=== PATIENT | female | born 1980 | race Caucasian/White ===

== ENCOUNTER → 2016-09-23 | Outpatient (CLI) | payer OTHER ==
[2015-06-09 11:00] VITALS: BP 146/96
[~2016-09-23] MED LIST: AMLO5TAB2 PO; CYCL10TA2 PO; DOCU-109 PO; HYDR-2679 PO; HYDR-2758 PO; HYDR12.58 PO; IBUP-1060 PO; LEVO75TA5 PO; LOSA50TA6 PO; MEDR150D3 IM; MEDR150V IM; MULT-208 PO; NIFE30TA2 PO; ORPH100T PO; SERT100T PO; SPIR25TA PO; TAPE75TA3 PO; TRAM50TA PO
--- NOTE | 2016-09-23 15:13 | KCIC ---
MR of the right knee HISTORY: Right knee pain after an injury. History of anterior and posterior cruciate ligament repair in 2012. Injury 2 weeks ago. TECHNIQUE: Routine multiplanar sequences are obtained. COMPARISON: None available FINDINGS: Mild signal identified within the posterior horn of the medial meniscus with mild undersurface violation compatible with a degenerative tear. No evidence of a lateral meniscal tear. The anterior cruciate ligament is thinned and poorly defined. This may be the nature of repair, but recurrent chronic tear is not excludable. Posterior cruciate ligament is thickened poorly defined, again could be due to scarring from repair or recurrent tear. Medial collateral ligament demonstrates proximal scarring without acute tear. Iliotibial band unremarkable. Fibular collateral ligament, biceps femoris tendon and popliteus tendon are intact. Extensor mechanism is intact. Small joint effusion. No evidence of an osteochondral loose body. Chondromalacia at the peripheral aspect of the medial joint compartment. Mild lateral compartment chondromalacia. Mild patellofemoral joint chondromalacia. Extensive marrow abnormality involving the distal femur, from the visualized diaphysis to the subchondral bone, and involving the tibial metaphysis through the subchondral bone. Findings are compatible with extensive intramedullary osteonecrosis. No evidence of subchondral bone surface collapse. No evidence of an acute fracture. There is localized edema/fluid at the posterior lateral knee, and along the posterior popliteus. IMPRESSION: 1. 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 2. Medial meniscal tear. 3. Poor definition of the anterior and posterior cruciate ligament. Findings may indicate scarring or the nature of previous repair, but recurrent chronic tearing of the ACL and/or PCL is not excludable. 4. Localized edema/fluid along the posterolateral knee, nonspecific. However this finding can be associated with small ligament injury at the posterolateral corner if that is of clinical concern. Electronically signed by: Carter Ramírez MD (09/23/2016 3:09 PM)
== END | disposition home or self-care (01) ==
LOC: KCIC MRI 13:53
PROVIDERS: ATTEND Nurse Practitioner Gerontology
DX: S89.91XD Unspecified injury of right lower leg, subsequent encounter (principal); M87.9 Osteonecrosis, unspecified; R60.0 Localized edema; X58.XXXD Exposure to other specified factors, subsequent encounter
CPT/HCPCS: 73721

== ENCOUNTER 2016-11-11 08:49 | Day surgery (SDC) | payer OTHER ==
[~2016-11-11] VITALS: Ht 175.3 cm; Wt 77.1 kg
[~2016-11-11 08:49] MED LIST changes: +BUPIVACAINE MPF 0.5% 30 ML VIAL. ONE; +CARV3.122 PO; +EPINEPHrine VIAL 30 MG/30 ML VIAL ONE; +HYDROmorphone 2 MG/ML VIAL IV PRN; +IBUP-1007 PO; +IV RINGERS,LACTATED 1000ML 1,000 ML IV SCH; +LEVO100T5 PO; +LIDOCAINE 1% 1 ML SYRINGE. ID PRN; +LIDOCAINE 1% 20 ML VIAL. ONE; +MORPHINE SULFATE 2 MG/ML DISP.SYRIN. IV PRN; +MULT1TAB52 PO; +ONDA4TAB7 PO; +ONDANSETRON PF 4 MG/2 ML VIAL. IV PRN; +OXYM20TA17 PO; +PROCHLORPERAZINE 10 MG/2 ML VIAL. IV PRN; +fentaNYL PF VIAL 100 MCG/2 ML VIAL IV PRN
[2016-11-11] MEDS ORDERED: fentaNYL PF VIAL 100 MCG/2 ML VIAL ONE ×3 (09:01→13:15)
[2016-11-11] MEDS ORDERED: MIDAZOLAM HCL/PF 2 MG/2 ML VIAL. ONE (09:01)
[2016-11-11] MEDS ORDERED: ONDANSETRON PF 4 MG/2 ML VIAL. ONE (09:02)
[2016-11-11] MEDS ORDERED: DEXAMETHASONE SOD PHOS 20 MG/5 ML VIAL. ONE (09:02)
[2016-11-11] MEDS ORDERED: PROPOFOL 20 ML IV ONE (09:02)
[2016-11-11] MEDS ORDERED: LIDOCAINE 2% PF Vial for OR 5 ML VIAL. ONE (09:02)
[2016-11-11] MEDS ORDERED: FAMOTIDINE 20 MG/2 ML VIAL ONE (09:02)
[2016-11-11] MEDS ORDERED: IV RINGERS,LACTATED 1000ML 1,000 ML IV SCH (09:30)
[2016-11-11] MEDS ORDERED: MELO15TA6 PO (09:34)
--- NOTE | 2016-11-11 09:59 | DISCH ---
DISCHARGE INSTRUCTIONS Condition on Discharge Condition on Discharge: Stable Activity After Discharge Activity Instructions for Disc: Other, see below Other activity instructions: knee brace to remain in place, except for showering Bathing Instructions: Shower-keep dressing dry Weight Bearing Status after Di: Full weight bearing Diet after Discharge Diet after Discharge: Regular Wound Incision Care Wound/Incision Care: Ice to area for comfort, Keep wound/cast CDI, Change dressing, Do not change dressing Contacting the DR. after DC Call your doctor for: Concerns you may have Follow-Up Follow up with: Rosmery in 2wks ANGIE VALENTINE II, MD Nov 11, 2016 09:59
[2016-11-11 10:07] LABS: NEG OBC UR NEG; POS OBC UR POS
--- NOTE | 2016-11-11 10:41 | PDOC4 ---
Operative Note Operative Note Date of surgery: 11/11/2016 Surgeon: Thai Valentine MD Sewing Machine Tester: Karen Maldonado Anesthesia Gen. plus local Preoperative diagnosis: Right knee ACL and PCL tears Postoperative diagnosis: Complete ACL tear and partial PCL tear Findings: She had grade 2 changes at her patella as well as medial and lateral compartments. No loose bodies. Blood loss: 10 mL Components inserted: Shaver and nephew Endobutton with Biomet tunnel lock Tourniquet time: None used Reason for procedure: Patient is a very pleasant 36-year-old female with persistent knee instability. She suffered an injury quite some time ago and had tried a brace as well as physical therapy which did not alleviate her symptoms successfully. Because of instability with activities of daily living, her and I had a discussion of the risks, benefits, and alternatives to the above procedure and she elected to proceed. Description of procedure: Patient was greeted in the preoperative area where the correct extremity was marked and verified. She was then taken back to the operative suite and her antibiotics were started and row. Once in the OR she was transferred gently supine to the OR table and underwent successful induction of a general anesthetic. She was secured to the bed. All pressure points were padded. A padded bolster was placed at her right hip. I conducted my examination under anesthesia which demonstrated a positive Delfino without endpoint, positive posterior drawer with an endpoint, negative dial at 30 and 90, and the knee that was stable to varus and valgus at 0 and 30. We then taped in place a tourniquet to her right thigh. After this we proceeded to prep and drape right lower extremity in our usual sterile fashion and conducted our standard preoperative timeout. At this point, my reference library assistant was at the back table preparing #2 ultra braid suture in a whipstitch fashion and the ends of the grafts. I then palpated and marked surface anatomy for my planned incisions and portals. I then used a scalpel to incise skin and introduced the blunt arthroscopic trocar through the anterolateral portal into the suprapatellar pouch. After this, I conducted my diagnostic arthroscopy with the above-noted findings. Upon entering the medial compartment, I used a spinal needle to localize an anteromedial portal. I then incised skin in accordance with this and dilated the hole with the trocar. I then inserted my probe and continued on with my diagnostic arthroscopy. Her leg was placed in a [id number] position to inspect the lateral compartment. I then began debriding the anterior cruciate ligament using a combination of arthroscopic biter and shaver. I had inspected the PCL and felt that it was mostly intact under arthroscopic inspection. Overall I felt she had a grade 2 PCL injury. Therefore, I elected to not reconstruct the PCL. After adequately debriding the notch and tibial footprint, I felt that I could reconstruct her ACL and avoid the prior tunnels. Therefore I used my tip guide and drilled my Beath pin to her tibial footprint, I then used the camera and inserted it into the tunnel after reaming, I only encountered a small amount of her prior tunnel proximally around her tibial surface. I then reinserted the camera into the anterolateral portal and using a #6 [id number] guide and hyperflexion I advanced my Beath pin and then withdrew it. I then inspected this position from the anteromedial portal and was happy with. I then reamed inserted the camera through the anterolateral portal in the [id number] guide and then advanced my Beath pin bicortically. After this I reamed and then inspected my tunnel after removing the bony debris. The tunnel was intact circumferentially and I could visualize the cortex laterally. I then reintroduced my Beath pin through the prior hole and out through the skin and used this to shuttle a #2 ultra braid suture through for passing suture. I then used a loop grasper through the tibial tunnel to retrieve the other end of the passing stitch and then shuttled my ACL graft in place with a good toggle of the Endobutton that disappeared with maximal backward traction on the graft through the tibial tunnel portion. After this I cycled the knee repeatedly with traction on the ACL graft and then impacted my tunnel lock device into position. I then reinserted the camera and took my final pictures and was happy with the graft position and orientation. There is no impingement. I then inserted the camera and shaver into the suprapatellar pouch and performed repeat aspiration maneuvers to ensure I removed all loose debris. I then removed all excess arthroscopic fluid and the arthroscopic instrumentation and closed her portals with simple interrupted 2-0 nylon. The deep layers over the tibial report were closed with inverted interrupted 20 followed by running 4-0 Monocryl subcuticular fashion. Prior to comp shooting wound closure all culture report is correct 2. No competitions. She tolerated surgery well. At the conclusion surgery she was awakened from anesthesia and transferred gently supine to the recovery room cart and taken to the PACU in stable and extubated condition. Postoperative plan is for her to weight-bear as tolerated and begin her rehabilitation. We will see her back in 2 weeks, sooner should a problem arise THAI VALENTINE II, MD Nov 11, 2016 10:41
[2016-11-11] MEDS ORDERED: KETOROLAC 60 MG/2 ML INJ FOR OR. ONE (12:08)
[2016-11-11] MEDS ORDERED: NEOSTIGMINE METHYLSULFATE 5 MG/5 ML SYRINGE. ONE (12:08)
[2016-11-11] MEDS ORDERED: GLYCOPYRROLATE 1 MG/5 ML VIAL. ONE (12:08)
[2016-11-11] MEDS ORDERED: SEVOFLURANE 61 TO 120 MINUTES. IH ONE (12:25)
[2016-11-11] MEDS ORDERED: HYDROmorphone 2 MG/ML VIAL ONE (12:40)
[2016-11-11] MEDS: fentaNYL PF VIAL 100 MCG/2 ML VIAL IV PRN ×4 (12:41→13:50)
[2016-11-11] MEDS ORDERED: OXYC-327 PO (12:44)
[2016-11-11] MEDS: HYDROmorphone 2 MG/ML VIAL IV PRN ×4 (12:49→13:35)
[2016-11-11] MEDS ORDERED: oxyCODONE/APAP 7.5/325 1 TAB TABLET PO PRN (13:30)
[2016-11-11] MEDS ORDERED: MORPHINE SULFATE 2 MG/ML DISP.SYRIN. ONE (13:34)
[2016-11-11] MEDS: MORPHINE SULFATE 2 MG/ML DISP.SYRIN. IV PRN ×2 (13:44→14:00)
[2016-11-11] MEDS ORDERED: MORPHINE SULFATE 2 MG/ML DISP.SYRIN. IV PRN (14:00)
[2016-11-11 14:26] VITALS: BP 149/89
== END 2016-11-11 15:08 | disposition home or self-care (01) ==
LOC: SURG 08:49
PROVIDERS: ATTEND Orthopaedic Surgery Sports Medicine
DX: S83.511A Sprain of anterior cruciate ligament of right knee, initial encounter (principal); S83.521A Sprain of posterior cruciate ligament of right knee, initial encounter; X58.XXXA Exposure to other specified factors, initial encounter; Y93.89 Activity, other specified; Y92.89 Other specified places as the place of occurrence of the external cause; Y99.8 Other external cause status; I10 Essential (primary) hypertension; E03.9 Hypothyroidism, unspecified; F17.200 Nicotine dependence, unspecified, uncomplicated; Z86.39 Personal history of other endocrine, nutritional and metabolic disease; Z72.0 Tobacco use
CPT/HCPCS: 29888; 81025; C1713; C1763; C1782; J0171; J0690; J0780; J1100; J1170; J1885; J2001; J2250; J2270; J2405; J2704; J2710; J3010; J3490; S0028

== ENCOUNTER 2017-10-08 06:19 | Day surgery (SDC) | payer OTHER, BC ==
[~2017-10-08 06:19] MED LIST changes: -AMLO5TAB2 PO; -BUPIVACAINE MPF 0.5% 30 ML VIAL. ONE; -CARV3.122 PO; -CYCL10TA2 PO; -DOCU-109 PO; +EPINEPHrine VIAL 30 MG/30 ML VIAL; -EPINEPHrine VIAL 30 MG/30 ML VIAL ONE; -HYDR-2679 PO; -HYDR-2758 PO; -HYDR12.58 PO; -HYDROmorphone 2 MG/ML VIAL IV PRN; -IBUP-1007 PO; -IBUP-1060 PO; -IV RINGERS,LACTATED 1000ML 1,000 ML IV SCH; -LEVO100T5 PO; -LEVO75TA5 PO; -LIDOCAINE 1% 1 ML SYRINGE. ID PRN; -LIDOCAINE 1% 20 ML VIAL. ONE; +LIDOCAINE 1% PF 30 ML VIAL.; -LOSA50TA6 PO; -MEDR150D3 IM; -MEDR150V IM; -MORPHINE SULFATE 2 MG/ML DISP.SYRIN. IV PRN; -MULT-208 PO; -MULT1TAB52 PO; -NIFE30TA2 PO; -ONDA4TAB7 PO; -ONDANSETRON PF 4 MG/2 ML VIAL. IV PRN; -ORPH100T PO; -OXYM20TA17 PO; -PROCHLORPERAZINE 10 MG/2 ML VIAL. IV PRN; -SERT100T PO; -SPIR25TA PO; -TAPE75TA3 PO; -TRAM50TA PO; -fentaNYL PF VIAL 100 MCG/2 ML VIAL IV PRN
[2017-10-08] MEDS ORDERED: PROPOFOL 20 ML IV (06:58)
[2017-10-08] MEDS ORDERED: LIDOCAINE 2% PF Vial for OR 5 ML VIAL. (06:58)
[2017-10-08] MEDS ORDERED: fentaNYL PF VIAL 250 MCG/5 ML VIAL (06:59)
[2017-10-08] MEDS ORDERED: MIDAZOLAM HCL/PF 2 MG/2 ML VIAL. (06:59)
[2017-10-08] MEDS ORDERED: MORPHINE SULFATE 2 MG/ML DISP.SYRIN. IV (07:00)
[2017-10-08] MEDS ORDERED: fentaNYL PF VIAL 100 MCG/2 ML VIAL IV (07:00)
[2017-10-08] MEDS ORDERED: ONDANSETRON PF 4 MG/2 ML VIAL. IV (07:00)
[2017-10-08] MEDS ORDERED: LIDOCAINE 1% PF 2 ML VIAL. ID (07:00)
[2017-10-08] MEDS ORDERED: PROCHLORPERAZINE 10 MG/2 ML VIAL. IV (07:00)
[2017-10-08] MEDS: IV RINGERS,LACTATED 1000ML 1,000 ML IV (07:01)
[2017-10-08 07:24] LABS: NEG OBC UR NEG; POS OBC UR POS; U PREG PATIENT NEGATIVE (NEG)
[2017-10-08] MEDS ORDERED: ONDANSETRON PF 4 MG/2 ML VIAL. (07:36)
[2017-10-08] MEDS ORDERED: DEXAMETHASONE SOD PHOS 20 MG/5 ML VIAL. (07:36)
[2017-10-08] MEDS: LIDOCAINE 1%/EPI 1:100,000 20 ML VIAL. INJ (07:38)
[2017-10-08] MEDS: BUPIVACAINE MPF 0.5% 30 ML VIAL. (07:38)
[2017-10-08] MEDS ORDERED: SEVOFLURANE 31 TO 60 MINUTES. IH (08:06)
[2017-10-08] MEDS: fentaNYL PF VIAL 100 MCG/2 ML VIAL IV ×4 (08:40→09:19)
[2017-10-08] MEDS: oxyCODONE/APAP 5/325 1 TAB TABLET PO (09:12)
== END 2017-10-08 10:43 | disposition home or self-care (01) ==
LOC: SURG 06:19
DX: T84.89XA Other specified complication of internal orthopedic prosthetic devices, implants and grafts, initial encounter (principal); I10 Essential (primary) hypertension; E03.9 Hypothyroidism, unspecified; F17.200 Nicotine dependence, unspecified, uncomplicated; Y83.8 Other surgical procedures as the cause of abnormal reaction of the patient, or of later complication, without mention of misadventure at the time of the procedure; Z98.890 Other specified postprocedural states
CPT/HCPCS: 20680; 81025; A7015; J0171; J0690; J1100; J2001; J2250; J2405; J2704; J3010; J3490

== ENCOUNTER → 2018-06-26 | Outpatient (CLI) | payer OTHER, BC ==
[2017-10-08 09:13] VITALS: BP 141/89
[~2018-06-26] MED LIST changes: +AMLO5TAB10 PO; +BUPR1PAT8 TP; +CARV3.1210 PO; +CARV6.2511 PO; +CYCL10TA2 PO; +DOCU-109 PO; -EPINEPHrine VIAL 30 MG/30 ML VIAL; +GABA600T7 PO; +HYDR-2679 PO; +HYDR-2761 PO; +HYDR12.58 PO; +IBUP-1007 PO; +IBUP-1060 PO; +LEVO100T5 PO; +LEVO75TA5 PO; -LIDOCAINE 1% PF 30 ML VIAL.; +LOSA-73 PO; +MEDR150D3 IM; +MEDR150V IM; +MELO15TA6 PO; +MULT-208 PO; +MULT1TAB52 PO; +NIFE30TA2 PO; +ONDA4TAB7 PO; +ORPH100T PO; +OXYC1TAB15 PO; +OXYC1TAB19 PO; +OXYM10TA3 PO; +OXYM20TA17 PO; +POTA20TA82 PO; +SERT100T PO; +SPIR25TA PO; +TAPE75TA3 PO; +TRAM50TA PO
--- NOTE | 2018-06-26 17:39 | KCIC ---
MRI of the lumbar spine without contrast 06/26/2018 CLINICAL HISTORY: Chronic low back pain since 2013. History of previous lumbar spine surgery. TECHNIQUE: Unenhanced T1-weighted and T2-weighted sagittal and axial and inversion recovery sagittal images of the lumbar spine were obtained. FINDINGS: Comparison is made to a CT scan of the lumbar spine dated 06/07/2018. The patient is again noted to have transitional vertebral anatomy. For the purposes of this dictation the transitional vertebral segment will be referred to by the letter T. It is sacralized. Minimal S-shaped curvature of the thoracolumbar spine is seen. Degenerative signal changes and loss of height are seen involving the L5-T disc. Degenerative signal changes are seen within the marrow surrounding this disc. The conus medullaris is normal morphology, position, and signal characteristics. The L1-2, L2-3 and L3-4 disc spaces are within normal limits. At the L4-5 disc space there is a minimal generalized disc bulge. Degenerative changes are seen involving the facet joints bilaterally. There is mild ligament flavum hypertrophy bilaterally. These findings when combined do not result in significant central spinal canal or neural foraminal stenosis. At the L5-T disc space the patient is post left hemilaminotomy. There is a mild to moderate generalized disc bulge. Degenerative changes are seen involving the facet joints bilaterally. These findings do not result in significant central spinal canal stenosis. Mild left neural foraminal stenosis is seen. The right neural foramen is patent. IMPRESSION: 1. Post left hemilaminotomy at L5-T. 2. The changes of degenerative disc disease are seen involving the lower lumbar spine. These findings do not result in significant central spinal canal stenosis at any level. Mild left neural foraminal stenosis is seen at L5-T. Electronically signed by: Deric Martinez MD (06/26/2018 5:36 PM) [facility]-[id number]
== END | disposition home or self-care (01) ==
LOC: KCIC MRI 13:51
PROVIDERS: ATTEND Physician Assistant Medical
DX: M51.36 Other intervertebral disc degeneration, lumbar region (principal); M48.05 Spinal stenosis, thoracolumbar region; M51.25 Other intervertebral disc displacement, thoracolumbar region; M47.815 Spondylosis without myelopathy or radiculopathy, thoracolumbar region; M43.8X5 Other specified deforming dorsopathies, thoracolumbar region
CPT/HCPCS: 72148

== ENCOUNTER → 2018-09-01 | Outpatient (CLI) | payer OTHER, BC ==
[2017-10-08 09:13] VITALS: BP 141/89
[~2018-09-01] MED LIST changes: +IOHEXOL 180 MG/ML 10 ML VIAL. ONE; +methylPREDNISolone ACETATE 40 MG/ML VIAL. ONE; +methylPREDNISolone ACETATE 80 MG/ML VIAL. ONE
--- NOTE | 2018-09-01 22:55 | PAIN ---
DATE OF SERVICE: 09/01/2018 INITIAL CONSULTATION FOR PAIN CLINIC CHIEF COMPLAINT: Low back and left lower extremity pain. HISTORY OF PRESENT ILLNESS: This is a 38-year-old female who presents with history of pain in the low back, left lower extremity, posterior gluteus, posterior thigh, posterior calf and lateral thigh and calf as well on the left side. The patient reports this is worse after a knee reconstruction she had, which was in 2015. The pain has been there since about 2012. The patient did have lumbar laminectomy in 2014, which helped the pain initially, but the pain is returning now in the low back and left leg. The patient reports it is worse with walking, standing, changing positions, better with sitting or lying down, but awakens from sleep about 3-4 times at night over the past several months. The patient reports it does not affect her bowel or bladder control, but does affect her ability to walk. She does not use any assistive device. She has significant fatigability of the left leg with ambulation. The patient reports pain is constant, stabbing, shooting, tingling with numbness and radiation in the left lower extremity. The patient rates her disability from 0-10, 10 being the worst as 7 with family and home responsibilities, recreation, social activity, occupation and sexual behavior, 3 with self-care and 5 with life support activities. The patient did have MRI scan dated 06/26/2018 showing post left hemilaminectomy L5-S1 with change in degenerative disk disease involving the lower lumbar spine, most significantly at L5-S1 with some mild left neural foraminal stenosis, no stenosis seen resulting in significant stenotic areas in the L4-L5 level. The patient reports no loss of motor function in the lower extremities, but significant fatigability with ambulation in the left leg with walking or changing positions. PAST MEDICAL HISTORY: Significant for only previous colon including throat surgery in 1983 and 1987, bone ____ over the left knee removed, tonsillectomy in 2000, in 2011, right knee reconstruction in 2012, lumbar surgery in 2014 and right knee surgery in 2016 x 3. CURRENT MEDICATIONS: Include Depo-Provera, tramadol, levothyroxine, potassium, Butrans and gabapentin. ALLERGIES: The patient has no known drug allergies. FAMILY HISTORY: Significant for thyroid disease and lupus. SOCIAL HISTORY: The patient drinks alcohol about 3-5 alcoholic beverages once a month; smokes occasionally, has been for 20 years, much less than a pack a day. He is , lives with her spouse, has one child, living at home. 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 REVIEW OF SYSTEMS: The patient's review of systems is positive for those items mentioned in history of present illness. All systems reviewed and otherwise negative. It is complete, full and well documented on the patient's chart. PHYSICAL EXAMINATION: VITAL SIGNS: The patient's blood pressure 113/78, pulse 78, respirations 18, temperature 98.1 degrees Fahrenheit, height is 5 feet 9 inches, weighs 179 pounds. GENERAL: The patient is awake, alert, oriented, appropriate, very pleasant demeanor. HEENT: Shows normocephalic, atraumatic. Extraocular movements are intact and symmetrical. Oral cavity: Mucous membranes moist and pink. Dentition is intact. NECK: Shows anterior throat supple without palpable lymphadenopathy noted. Swallow reflex symmetrical. CHEST: Shows normal with inspection. Breath sounds clear to auscultation bilaterally. HEART: Shows S1, S2 clear. No murmurs auscultated. ABDOMEN: Soft, nontender, nondistended. No palpable organomegaly is noted. No rebound or guarding demonstrated. BACK: Shows spine grossly in the midline. Normal-appearing thoracic kyphosis and lumbar lordotic curvature. Well-healed surgical scar is noted. Lumbar paraspinous muscle shows symmetrical on inspection; on palpation shows some mild tenderness to moderate tenderness in the low lumbar distribution on the left side greater than the right, without atrophy, hypertrophy without trigger points. No radiation of pain. The patient has good rotational motion of lumbar spine, both laterally as well as extension and flexion without significant difficulty. EXTREMITIES: Lower extremities show deep tendon reflexes at 2+ in the patellar, 1+ tendo-calcaneus tendons. Motor exam is strong with 5/5 dorsiflexion, extension, quadriceps and hamstring flexion. She does have a mild straight leg raise positive on the left at about 45 degrees, decreased with knee flexion, right side is negative. Gaenslen's and Compa's maneuvers are negative bilaterally. Lower extremities are warm and dry to touch, equal in color and appearance. No peripheral edema is noted. Peripheral pulses are 1+ posterior tibial and dorsalis pedis pulses. The patient's skin shows warm and dry, good turgor. No edema. No sores, rashes or bruising throughout. The patient is able to stand, stand on her toes without significant difficulty or loss of balance, walks with a normal appearing gait for short distance in the office without any assistive devices such as canes or walkers to ambulate. IMPRESSION: This is a 38-year-old female with: 1. Long history of low back and left lower extremity pain, worse since knee construction in 2016. 2. MRI scan of lumbar spine as noted. 3. Previous lumbar laminectomy. PLAN: Options were discussed with the patient including conservative medical management, physical therapy, interventional techniques and she would like to pursue interventional techniques. We discussed lumbar epidural steroid injection using description as well as anatomical models to describe the procedure. Risks were then discussed including, but not limited to bleeding, infection, possibility of epidural hematoma, subsequent neurological compromise, dural puncture, headaches, spinal cord and/or nerve damage, side effects of steroid medication and poor results regarding pain control. The patient understands and wished to proceed. The patient will return to clinic in approximately 2 weeks for followup, was counseled as to return appointment, activity level and side effects to be aware of. DIAGNOSES: Lumbar radiculopathy with lumbar degenerative disk disease, post-lumbar laminectomy syndrome. PROCEDURE: Lumbar epidural steroid injection, translaminar approach at the L5-S1 level using C-arm fluoroscopic guidance under sterile prep and drape using local anesthetic. MEDICATION INJECTED: A total of 120 mg Depo-Medrol plus 10 mL of preservative-free normal saline, 2 mL of contrast. CONDITION AT DISCHARGE: Stable. The patient tolerated the procedure well, had no complications. SUDHIR AGARWAL MD DR: SE/loy JOB#: [id number] / [id number]
== END | disposition home or self-care (01) ==
LOC: PNCL 09:58
PROVIDERS: ATTEND Anesthesiology
DX: M51.16 Intervertebral disc disorders with radiculopathy, lumbar region (principal); M96.1 Postlaminectomy syndrome, not elsewhere classified; Z98.890 Other specified postprocedural states; Z79.899 Other long term (current) drug therapy; Z72.89 Other problems related to lifestyle; F17.210 Nicotine dependence, cigarettes, uncomplicated
CPT/HCPCS: 62323; J1030; J1040; Q9965

== ENCOUNTER → 2019-11-11 | Outpatient (CLI) | payer OTHER ==
[2017-10-08 09:13] VITALS: BP 141/89
[~2019-11-11] MED LIST changes: -IOHEXOL 180 MG/ML 10 ML VIAL. ONE; +MULT-445 PO; -MULT1TAB52 PO; +POTA20TA4 PO; -POTA20TA82 PO; -methylPREDNISolone ACETATE 40 MG/ML VIAL. ONE; -methylPREDNISolone ACETATE 80 MG/ML VIAL. ONE
--- NOTE | 2019-11-11 15:37 | KCIC ---
Examination: MRI of the right knee without contrast HISTORY: History of right knee pain COMPARISON: 09/23/2016 TECHNIQUE: Multiplanar, multisequence MR imaging of the right knee was performed without contrast. FINDINGS: Multiple serpiginous lesions identified in the intramedullary portion of the distal femur and the tibia likely osteonecrosis similar to prior exam. The anterior cruciate ligament is thinned and poorly defined. The anterior and posterior cruciate ligament not well defined similar to prior exam probably reconstructed appearance.. Small knee joint effusion. There is oblique tear of the posterior horn of the medial meniscus similar to prior exam extending to the inferior articular surface. The lateral meniscus appears intact. The medial collateral ligament is intact. Lateral collateral ligamentous complex including the fibular collateral ligament, biceps femoris tendon, popliteus ligament appear intact. The medial retinaculum, lateral retinaculum appears intact. Small knee joint effusion is identified. The extensor mechanism appears intact. Superficial fraying of cartilage identified in the medial, lateral compartments. IMPRESSION: 1. Multiple foci of intramedullary osteonecrosis in the distal femur and proximal tibia similar to prior exam. 2. Unchanged medial meniscal tear. 3. Poorly defined appearance of the anterior cruciate ligament, posterior cruciate ligament probably prior surgical changes of repair similar to prior exam. 4. Grade II chondromalacia medial, lateral compartment. Electronically signed by: Stephen Rodriguez MD (11/11/2019 3:33 PM) [id number]
== END ==
LOC: KCIC MRI 13:00
PROVIDERS: ATTEND Physician Assistant Medical
DX: S83.241A Other tear of medial meniscus, current injury, right knee, initial encounter (principal); M87.88 Other osteonecrosis, other site; M94.261 Chondromalacia, right knee; M25.461 Effusion, right knee; X58.XXXA Exposure to other specified factors, initial encounter; Y93.89 Activity, other specified; Y92.89 Other specified places as the place of occurrence of the external cause; Y99.8 Other external cause status
CPT/HCPCS: 73721

== ENCOUNTER → 2021-08-15 | Outpatient (CLI) | payer BC, OTHER ==
[2017-10-08 09:13] VITALS: BP 141/89
[~2021-08-15] MED LIST changes: +AMLO-186 PO; -AMLO5TAB10 PO; +CYCL10TA19 PO; -CYCL10TA2 PO
--- NOTE | 2021-08-15 08:39 | RAD ---
Exam Date: 08/15/2021 7:16 AM US ABDOMEN COMPLETE Indication: Reason: JAUNDICE / Spl. Instructions: / History: . TECHNIQUE: Multiple longitudinal and transverse sonographic images of the abdomen are submitted for interpretation. FINDINGS: The liver is normal in size and echogenicity. The portal vein is patent with hepatopetal flow. No focal intrahepatic abnormality is seen. The gallbladder is normal, without gallstones, gallbladder wall thickening or pericholecystic fluid. There is no biliary ductal dilatation, with the common bile duct measuring 6 mm. The spleen is normal in size and echogenicity. The visualized abdominal aorta, inferior vena cava an d pancreas are within normal limits. There is no upper abdominal ascites. The kidneys are normal in appearance, with the right kidney measuring 11.7 cm and the left kidney measuring 12.1 cm. IMPRESSION: Normal abdominal ultrasound. Electronically signed by: Jose Ragland MD (08/15/2021 8:37 AM) [id number]
== END ==
LOC: US 07:03
PROVIDERS: ATTEND Physician Assistant
DX: I10 Essential (primary) hypertension (principal)
CPT/HCPCS: 76700